=== PATIENT | male | born 1985 | race Caucasian/White ===

== ENCOUNTER → 2020-07-06 10:51 | Outpatient (BNVA) | payer MEDICARE, MEDICAID, SELFPAY | PROVIDERS: Referring Provider Dermatology; Visit Provider Dermatology | DX: L81.0 Postinflammatory hyperpigmentation (principal); L90.5 Scar conditions and fibrosis of skin; L85.3 Xerosis cutis | CPT/HCPCS: 99203 ==

== ENCOUNTER 2020-07-26 14:34 | Outpatient (CLI) | payer MEDICARE, MEDICAID, SELFPAY ==
--- NOTE | 2020-07-26 14:46 | MR_ITS ---
WS: [id number] MRI LUMBAR SPINE NONCONTRAST HISTORY: FAILED SURGICAL SYNDROME, several prior lumbar spine surgeries which were multiple years ago . COMPARISON: None available. TECHNIQUE: Sagittal and axial multisequence imaging is submitted. Lumbar alignment is normal. There is prior fusion hardware at the L4-S1 levels. Anterior and posterio r fusion hardware. Hardware is causing significant artifact through these levels. The L4-5 and L5-S1 disc spaces are poorly visualized but disc spaces do appear to be present. No marrow edema or fractur e identified. Significant narrowing of the thecal sac beginning at the mid L1 level through the superior endplate o f L3. There is tethering and thickening of the nerve roots. Conus terminates normally at L1-2 disc level. L1-L2: No significant stenosis. L2-L3: Moderate annular disc bulging. RIGHT paracentral and proximal foraminal disc protrusion. Mild facet and ligamentum flavum hypertrophy. There is at least moderate central stenosis with severe RIGH T and mild LEFT foraminal stenosis. Bilateral subarticular recess stenosis is at least moderate, grea ter on the RIGHT. L3-L4: Diffuse annular disc bulging with facet disease and ligamentum flavum hypertrophy. Near comple te effacement of ventral CSF. Moderate central and moderate to severe bilateral foraminal stenosis an d subarticular recess stenosis. L4-L5: Clumping of the nerve roots in the periphery of the thecal sac. Mild RIGHT foraminal stenosis. The disc space and foramen are poorly visualized. L5-S1: Mild annular disc bulging with a central shallow disc protrusion. No significant stenosis. Paravertebral soft tissues are negative. MR/MR lumbar spine wo con* [id number] IMPRESSION: 1. No prior studies for comparison. 2. There is extensive anterior and posterior fusion hardware from L4 to S1 caio aterally. Interbody spacers at L4-5 and L5-S1. 3. Moderate central with severe RIGHT foraminal stenosis at L2-3. Moderate sub articular recess stenosis at L2-3 also. 4. Moderate central with moderate to severe bilateral foraminal subarticular r ecess stenosis at L3-4. 5. Abnormal signal involving the nerve roots and conus extending over length o f 6.6 cm. 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
== END 2020-07-26 14:35 | disposition home or self-care (01) ==
LOC: RADWPI 14:40
PROVIDERS: PCP Family Medicine Adult Medicine; Visit Provider Family Medicine
DX: M96.1 Postlaminectomy syndrome, not elsewhere classified (principal); G89.29 Other chronic pain; M48.061 Spinal stenosis, lumbar region without neurogenic claudication; M43.27 Fusion of spine, lumbosacral region
CPT/HCPCS: 72148

== ENCOUNTER → 2020-07-27 10:45 | Outpatient (BNVA) | payer MEDICARE, MEDICAID, SELFPAY | PROVIDERS: PCP Family Medicine Adult Medicine; Visit Provider Dermatology | DX: R21 Rash and other nonspecific skin eruption (principal); F17.210 Nicotine dependence, cigarettes, uncomplicated; D48.9 Neoplasm of uncertain behavior, unspecified | CPT/HCPCS: 11104; 88304; 99212; 99213 ==

== ENCOUNTER → 2020-08-21 15:11 | Outpatient (BNVA) | payer MEDICARE, MEDICAID, SELFPAY | PROVIDERS: PCP Family Medicine Adult Medicine; Visit Provider Nurse Practitioner Family | DX: Z20.828 Contact with and (suspected) exposure to other viral communicable diseases (principal); J06.9 Acute upper respiratory infection, unspecified | CPT/HCPCS: 87635 ==

== ENCOUNTER 2020-11-08 08:34 | Outpatient (RCR) | payer MEDICARE, MEDICAID, SELFPAY | END 2020-12-03 23:59 | disposition home or self-care (01) | LOC: SPT 08:34 | PROVIDERS: PCP Family Medicine Adult Medicine; Referring Provider Family Medicine; Visit Provider Family Medicine | DX: R29.898 Other symptoms and signs involving the musculoskeletal system (principal); M25.511 Pain in right shoulder; M25.512 Pain in left shoulder | CPT/HCPCS: 97110; 97161; 97530 ==

== ENCOUNTER 2020-12-04 06:00 | Outpatient (RCR) | payer MEDICARE, MEDICAID, SELFPAY | END 2020-12-31 23:59 | disposition home or self-care (01) | LOC: SPT 06:00 | PROVIDERS: PCP Family Medicine Adult Medicine; Referring Provider Family Medicine; Visit Provider Family Medicine | DX: R29.898 Other symptoms and signs involving the musculoskeletal system (principal); M25.511 Pain in right shoulder; M25.512 Pain in left shoulder | CPT/HCPCS: 97110; 97164; 97530 ==

== ENCOUNTER 2021-01-01 06:00 | Outpatient (RCR) | payer MEDICARE, MEDICAID, SELFPAY | END 2021-01-31 23:59 | disposition home or self-care (01) | LOC: SPT 06:00 | PROVIDERS: PCP Family Medicine Adult Medicine; Referring Provider Family Medicine; Visit Provider Family Medicine | DX: R29.898 Other symptoms and signs involving the musculoskeletal system (principal); M25.511 Pain in right shoulder; M25.512 Pain in left shoulder | CPT/HCPCS: 97110 ==

== ENCOUNTER 2021-03-19 09:10 | Outpatient (CLI) | payer MEDICARE, MEDICAID, SELFPAY ==
[2021-03-19 10:01] LABS: Basophils % 0.3 %; Eosinophils # 0.2 10^3/uL (0.0-0.8); Eosinophils % 2.7 %; Hematocrit 47.5 % (42.0-52.0); Hemoglobin 16.4 g/dL (11.7-16.6); Lymphocytes # 2.3 10^3/uL (0.8-4.8); Lymphocytes % 36.6 %; Mean Corpuscular HGB Conc 34.5 g/dL (30.0-36.0); Mean Corpuscular Hemoglobin 30.4 pg (28.0-34.0); Mean Corpuscular Volume 88.1 fL (80-94); Mean Platelet Volume 10.7 fL (7.4-10.4); Monocytes # 0.5 10^3/uL (0.2-0.9); Monocytes % 7.3 %; Neutrophils # 3.39 10^3/uL (1.8-7.7); Neutrophils % 52.9 %; Nucleated Red Blood Cells % 0 %; Platelet Count 289 10^3/cmm (130-400); Red Blood Count 5.39 10^6/uL (4.1-5.3); Red Cell Distribution Width 12.1 % (12.1-15.1); White Blood Count 6.4 10^3/uL (4.0-10.0)
[2021-03-19 10:38] LABS: Estmated Average Glucose 103; Hemoglobin A1C 5.2 % (4.0-6.0)
[2021-03-19 10:56] LABS: Alanine Aminotransferase 31 U/L (0-41); Albumin Level 4.4 g/dL (3.5-5.2); Alkaline Phosphatase 63 IU/L (40-130); Anion Gap 14.3 (5-19); Aspartate Amino Transferase 38 U/L (0-40); Blood Urea Nitrogen 11 mg/dL (6-20); Calcium 9.3 mg/dL (8.5-10.5); Carbon Dioxide 25 mmol/L (22-29); Chloride 105 mmol/L (98-107); Chol HDL Ratio 6.86 mg/dL (1.0-5.00); Cholesterol 199 mg/dL (0-200); Globulin 3.5 g/dL (1.3-4.6); Glomerular Filtration Rate 108.8 mL/min (90-130); Glucose 91 mg/dL (65-115); HDL Cholesterol 29 mg/dL (60-100); Osmolality Calculated 289 mOsm/kg (285-295); Potassium 4.3 mmol/L (3.5-5.1); Sodium 140 mmol/L (136-145); Thyroid Stimulating Hormone 1.49 uIU/mL (0.27-4.20); Total Bilirubin 0.6 mg/dL (0.15-1.2); Total Protein 7.9 g/dL (6.6-8.7); Triglycerides 527 mg/dL (0-150)
[2021-03-19 11:27] LABS: LDL Cholesterol Direct 97 mg/dL (0-100); Testosterone Total 458.3 ng/dL (249-836)
== END 2021-03-19 09:11 | disposition home or self-care (01) ==
LOC: LAB 09:23
PROVIDERS: PCP Family Medicine Adult Medicine; Visit Provider Family Medicine Adult Medicine
DX: Z00.00 Encounter for general adult medical examination without abnormal findings (principal); L60.3 Nail dystrophy; F19.90 Other psychoactive substance use, unspecified, uncomplicated
CPT/HCPCS: 80053; 80061; 83036; 83721; 84403; 84443; 85025

== ENCOUNTER 2021-04-09 23:26 | Emergency (ER) | payer MEDICARE, MEDICAID, SELFPAY ==
[2021-04-09 23:32] VITALS: BP 140/99; PULSE 107; RESP 20; TEMP 37.3; O2SAT 95; BMI 36.3
--- NOTE | 2021-04-09 23:42 | ED_ITS ---
HPI - Extremity Problem General: Chief complaint: Extremity Problem,Nontraumatic Stated complaint: BEEN SICK 4 DAYS NOW HAS SWELLING IN LEFT ARM Time Seen by Provider: 04/09/21 23:42 History of Present Illness: HPI Narrative: 35-year-old male patient comes in w ith redness to the forearm on the left upper extremity for 3 days. Patient also has an enlarged lymph node to left axilla. Patient was seen at [facility] earlier today and was started on antibiotic but was unable to get it started this evening. Patient came in the emergency room to initiate treatment for his cellulitis. Patient also had some concerns relating a abscess to the groin. Patient has a history of heroin abuse with frequent staph infections. Patient even reports a history of staph to his spine. Patient at this time is afebrile. There is noticeable redness and swelling to the left forearm. MD Complaint: extremity swelling Review of Systems General: Reports: 10 or more systems reviewed and unremarkable except in HPI and below Skin/Breast: Reports: erythema (Left upper extremity.) and other (Abscess to the scrotum.) [facility] PFSH: Medical History Anxiety and depression Asteatosis cutis Chronic back pain Dyslipidemia (high LDL; low HDL) Encounter for smoking cessation counseling IV drug user Obesity (BMI 30-39.9) Sinusitis chronic, sphenoidal Sty, internal Surgical History H/O laminectomy Previous back surgery Family History Other Diabetes Social History Smoking and tobacco status: current every day smoker cigarettes Packs smoked per day: 0.5 [ Other cigarette details: 3 cigarettes, in rehab ] Alcohol intake: former Housing: Other Details: Rehab- [facility] [place] History of recent travel: No Physical Exam Const: COMMON NORMALS: no acute distress and patient oriented x3 GENERAL APPEARANCE: cooperative HENMT: COMMON NORMALS: normocephalic and Normal external nose present HEAD & SCALP: normal to inspection and normocephalic NOSE: Normal external nose present THROAT: posterior oropharynx normal Eye: GENERAL EYE: appearance normal, both eyes and all related structures Neck/C-Spine: COMMON NORMALS: full ROM Lymph: LYMPHATIC: lymphadenopathy (Left axilla) Chest: COMMONS NORMALS: normal inspection of the chest Resp: COMMON NORMALS: normal respiratory effort EFFORT & INSPECTION: Yes able to speak in complete sentences Cardio: COMMON NORMALS: regular rate and regular rhythm RATE: regular rate RHYTHM: regular rhythm GI: COMMON NORMALS: non-tender : COMMON NORMALS: Yes no CVA tenderness BLADDER/KIDNEY EXAM: Yes no CVA tenderness Back/Pelvis: COMMON NORMALS: no CVA tenderness and thoracic and lumbar spine normal to inspection Extremity: NARRATIVE EXTREMITY EXAM: Redness and swelling to the left forearm. Patient has extensive scarring to bilateral arms due to IV drug use history. Neuro: COMMON NORMALS: patient oriented x3 and moves all extremities Psych: COMMON NORMALS: mental status grossly normal and cooperative Skin: NARRATIVE SKIN EXAM: Draining abscess is noted to the left scrotal fold. Course Vital Signs: Vital signs: Vital Signs Temperature 99.1 F 04/09/21 23:32 Pulse Rate 107 H 04/09/21 23:32 Respiratory Rate 20 H 04/09/21 23:32 Blood Pressure 140/99 04/09/21 23:32 Pulse Oximetry 95 04/09/21 23:32 MDM - Extremity (Nontraumatic) MDM Narrative: Medical decision making narrative: Patient comes in today with complaints of redness and swelling to the left forearm. Patient also has an abscess to the scrotum that he was concerned may be a STD. On exam patient has the noticeable redness and warmth to the left forearm. Patient has a lot of scarring to bilateral forearms which he relates to his heroin addiction in the past. On exam the scrotal area we note a draining abscess. Patient also has some significant tinea cruris. Differential diagnosis includes DVT, cellulitis, abscess. Patient appears well at this time. Suspect patient probably has a cellulitis to the left forearm and a draining abscess to the scrotum. We will give patient 900 mg of clindamycin IV x1 and then start him on oral clindamycin 450 mg 3 times a day for the next 10 days. Patient was recommended to monitor site for worsening signs and symptoms such as increasing swelling pain and high fever. Patient should return to the ER for worsening symptoms. Patient reported understanding. Lab Data: Labs: Lab Results 04/10/21 Range/Units 00:17 WBC 11.5 H (4.0-10.0) 10^3/ uL RBC 5.21 (4.1-5.3) 10^6/u L Hgb 16.3 (11.7-16.6) g/dL Hct 45.4 (42.0-52.0) % MCV 87.1 (80-94) fL MCH 31.3 (28.0-34.0) pg MCHC 35.9 (30.0-36.0) g/dL RDW 12.4 (12.1-15.1) % Plt Count 184 (130-400) 10^3/c mm MPV 9.9 (7.4-10.4) fL Neut % (Auto) 78.4 % Lymph % (Auto) 12.1 % [place] % (Auto) 8.0 % Eos % (Auto) 0.9 % Baso % (Auto) 0.3 % Neut # (Auto) 9.05 H (1.8-7.7) 10^3/u L Lymph # (Auto) 1.4 (0.8-4.8) 10^3/u L [place] # (Auto) 0.9 (0.2-0.9) 10^3/u L Eos # (Auto) 0.1 (0.0-0.8) 10^3/u L Baso # (Auto) 0.0 (0.0-0.1) 10^3/u L Nucleated RBC % (a uto) 0 % Nucleated RBCs # 0.0 /100WBC Discharge Plan Discharge Patient Disposition: Home Clinical Impression: Cellulitis of arm, left, Abscess of scrotum Condition: Stable Prescriptions: New clindamycin HCl 150 mg capsule 450 mg PO Q8H 10 Days Qty: 90 RF: 0 No Action gemfibrozil 600 mg tablet 600 mg PO BID Qty: 60 RF: 5 melatonin PO PRNRF: 0 albuterol sulfate [Ventolin HFA] 90 mcg/actuation HFA aerosol inhaler 2 puff inhalation Q6H PRN (Reason: shortness of breath or wheezing) Qty: 8.5 RF: 3 baclofen 10 mg tablet 10 mg PO BID 30 Days Qty: 60 RF: 2 buspirone 5 mg tablet 5 mg PO BID Qty: 60 RF: 5 cetirizine [Zyrtec] 10 mg tablet 10 mg PO DAILY Qty: 30 RF: 2 fluticasone propionate [Flonase Allergy Relief] 50 mcg/actuation spray,suspension 2 spray intranasal DAILY Qty: 15.8 RF: 5 naproxen 250 mg tablet 250 mg PO BID PRN (Reason: pain) 30 Days Qty: 60 RF: 1 Discharge Orders: Discharge ED (Routine); Ordered 04/10/21 Ordered By: Rick Toney Referrals: Phil Salazar MD [Primary Care Provider] - Discharge Diet: Usual diet Discharge Activity: Increase activity as tolerated Patient Instructions: Cellulitis (ED), Opioid Safety Activity Restrictions/Additional Instructions: Home and rest. Keep arm elevated. Take antibiotics as directed. Follow-up [facility] primary care as needed. Return to the ER for worsening symptoms or new concerns. Coding Level of Care Code ED Door To Door Sales Representative for [place] Fwd Exam Comprehensive
[2021-04-10 00:24] LABS: Basophils % 0.3 %; Eosinophils # 0.1 10^3/uL (0.0-0.8); Eosinophils % 0.9 %; Hematocrit 45.4 % (42.0-52.0); Hemoglobin 16.3 g/dL (11.7-16.6); Lymphocytes # 1.4 10^3/uL (0.8-4.8); Lymphocytes % 12.1 %; Mean Corpuscular HGB Conc 35.9 g/dL (30.0-36.0); Mean Corpuscular Hemoglobin 31.3 pg (28.0-34.0); Mean Corpuscular Volume 87.1 fL (80-94); Mean Platelet Volume 9.9 fL (7.4-10.4); Monocytes # 0.9 10^3/uL (0.2-0.9); Neutrophils # 9.05 10^3/uL (1.8-7.7); Neutrophils % 78.4 %; Nucleated Red Blood Cells % 0 %; Platelet Count 184 10^3/cmm (130-400); Red Blood Count 5.21 10^6/uL (4.1-5.3); Red Cell Distribution Width 12.4 % (12.1-15.1); White Blood Count 11.5 10^3/uL (4.0-10.0)
[2021-04-10] MEDS: clindamycin 900 MG/50 ML PREMIX 100 MG IV (00:29)
[2021-04-10 00:57] VITALS: BP 119/80; PULSE 100; RESP 18; O2SAT 96
== END 2021-04-10 01:01 | disposition home or self-care (01) ==
PROVIDERS: Emergency Provider Nurse Practitioner Family; PCP Family Medicine Adult Medicine
DX: L03.114 Cellulitis of left upper limb (principal); N49.2 Inflammatory disorders of scrotum; E78.5 Hyperlipidemia, unspecified; F17.210 Nicotine dependence, cigarettes, uncomplicated
CPT/HCPCS: 85025; 87040; 96365; 99283; J3490

== ENCOUNTER → 2021-04-12 09:50 | Outpatient (BNVA) | payer MEDICARE, MEDICAID, SELFPAY | PROVIDERS: PCP Family Medicine Adult Medicine; Referring Provider Family Medicine Adult Medicine; Visit Provider Anesthesiology Pain Medicine | DX: G89.29 Other chronic pain (principal); M54.9 Dorsalgia, unspecified; M51.16 Intervertebral disc disorders with radiculopathy, lumbar region; M43.26 Fusion of spine, lumbar region; M47.816 Spondylosis without myelopathy or radiculopathy, lumbar region; F17.210 Nicotine dependence, cigarettes, uncomplicated; Z79.899 Other long term (current) drug therapy | CPT/HCPCS: 99205 ==

== ENCOUNTER → 2021-04-23 14:18 | Outpatient (BNVA) | payer MEDICARE, MEDICAID, SELFPAY | PROVIDERS: PCP Family Medicine Adult Medicine; Visit Provider Anesthesiology Pain Medicine | DX: G89.29 Other chronic pain (principal); M47.816 Spondylosis without myelopathy or radiculopathy, lumbar region; M54.9 Dorsalgia, unspecified; F17.210 Nicotine dependence, cigarettes, uncomplicated | CPT/HCPCS: 64493; 64494; 64495; J1040; J3490 ==

== ENCOUNTER → 2021-05-09 11:13 | Outpatient (BNVA) | payer MEDICARE, MEDICAID, SELFPAY | PROVIDERS: PCP Family Medicine Adult Medicine; Visit Provider Anesthesiology Pain Medicine | DX: G89.29 Other chronic pain (principal); M51.16 Intervertebral disc disorders with radiculopathy, lumbar region; M43.26 Fusion of spine, lumbar region; M47.816 Spondylosis without myelopathy or radiculopathy, lumbar region; M54.9 Dorsalgia, unspecified; F17.210 Nicotine dependence, cigarettes, uncomplicated | CPT/HCPCS: 99215 ==

== ENCOUNTER 2021-05-28 06:00 | Outpatient (RCR) | payer MEDICARE, MEDICAID, SELFPAY | END 2021-06-02 23:59 | disposition home or self-care (01) | LOC: SPT 06:00 | PROVIDERS: PCP Family Medicine Adult Medicine; Referring Provider Family Medicine Adult Medicine; Visit Provider Family Medicine Adult Medicine | DX: R29.898 Other symptoms and signs involving the musculoskeletal system (principal); M25.511 Pain in right shoulder; M25.512 Pain in left shoulder; M21.372 Foot drop, left foot | CPT/HCPCS: 97110; 97112; 97161 ==

== ENCOUNTER 2021-06-03 06:00 | Outpatient (RCR) | payer MEDICARE, MEDICAID, SELFPAY | END 2021-07-03 23:59 | disposition home or self-care (01) | LOC: SPT 06:00 | PROVIDERS: PCP Family Medicine Adult Medicine; Referring Provider Family Medicine Adult Medicine; Visit Provider Family Medicine Adult Medicine | DX: R29.898 Other symptoms and signs involving the musculoskeletal system (principal); M25.511 Pain in right shoulder; M25.512 Pain in left shoulder; M21.372 Foot drop, left foot | CPT/HCPCS: 97110; 97112; 97530 ==

== ENCOUNTER 2021-06-12 07:45 | Outpatient (CLI) | payer MEDICARE, MEDICAID, SELFPAY ==
--- NOTE | 2021-06-12 08:01 | MR_ITS ---
WS: [id number] MRI LUMBAR SPINE NONCONTRAST HISTORY: LUMBAR STENOSIS WITHOUT NEUROGENIC CLAUDICATION COMPARISON: 07/26/2020 TECHNIQUE: Sagittal and axial multisequence imaging is submitted. Small central disc protrusion at T10-11 contacting the ventral thoracic cord. There are smaller addit ional protrusions throughout the thoracic spine. Straightening of the normal lumbar lordosis. Prior lumbar fusion from L4 to S1. Interbody spacers at L4-5 and L5-S1 with fusion. No marrow edema or acute fracture. Conus terminates normally at L1-2 disc level. L1-L2: Mild disc bulging slightly asymmetric to the LEFT foramen. No stenosis. L2-L3: Diffuse moderate annular disc bulging with moderate facet and ligamentum flavum hypertrophy. D isc and osteophyte complex extends into the RIGHT subarticular recess and foramen with contact on the L2 and L3 nerve roots. There is at least moderate central and bilateral subarticular and RIGHT madeleine inal stenosis. Mild LEFT foraminal stenosis. Not significantly changed. L3-L4: Diffuse annular disc bulging with ligamentum flavum hypertrophy and mild facet joint arthritis . LEFT subarticular disc protrusion is again noted. Mild central stenosis with moderate bilateral sub articular recess and LEFT foraminal stenosis. Mild stenosis RIGHT foramen. L4-L5: Artifact from patient's hardware. Mild to moderate RIGHT foraminal stenosis. Mild stenosis on the LEFT. L5-S1: Central disc protrusion is similar to the prior study. Mild contact on the S1 nerve roots but no displacement. There is mild bilateral facet joint arthritis. Paravertebral soft tissues are negative. MR/MR lumbar spine wo con* [id number] IMPRESSION: 1. Quality is limited by motion artifact. 2. Probably no significant change since the prior examination. 3. Prior posterior lumbar fusion from L4 to S1. 4. Moderate central and bilateral subarticular recess and RIGHT foraminal sten osis at L2-3 due to disc osteophyte and facet arthritis. 5. Moderate bilateral subarticular recess and LEFT foraminal stenosis at L3-4. Associated LEFT subarticular disc protrusion is again noted. 6. Mild to moderate RIGHT foraminal stenosis at L4-5. 7. Central disc protrusion L5-S1 with mild contact on the S1 nerve roots.
== END 2021-06-12 07:46 | disposition home or self-care (01) ==
LOC: RADWPI 07:48
PROVIDERS: PCP Family Medicine Adult Medicine; Visit Provider Nurse Practitioner Acute Care
DX: M48.061 Spinal stenosis, lumbar region without neurogenic claudication (principal); M51.27 Other intervertebral disc displacement, lumbosacral region; M43.27 Fusion of spine, lumbosacral region
CPT/HCPCS: 72148

== ENCOUNTER 2021-07-04 06:00 | Outpatient (RCR) | payer MEDICARE, MEDICAID, SELFPAY | END 2021-08-02 23:59 | disposition home or self-care (01) | LOC: SPT 06:00 | PROVIDERS: PCP Family Medicine Adult Medicine; Referring Provider Family Medicine Adult Medicine; Visit Provider Family Medicine Adult Medicine | DX: R29.898 Other symptoms and signs involving the musculoskeletal system (principal); M25.511 Pain in right shoulder; M25.512 Pain in left shoulder; M21.372 Foot drop, left foot | CPT/HCPCS: 97110; 97112 ==

== ENCOUNTER 2021-07-20 14:01 | Outpatient (CLI) | payer MEDICARE, MEDICAID, SELFPAY ==
--- NOTE | 2021-07-20 14:15 | US_ITS ---
WS: [id number] TESTICULAR ULTRASOUND HISTORY: knot in scrotum COMPARISON: None available. TECHNIQUE: Real-time and color Doppler imaging or utilized to perform a testicular ultrasound. Right testicle: 5.6 cm x 3.5 cm x 2.6 cm. Normal size and echogenicity. No mass or torsion. Normal color Doppler is present throughout. Systolic and diastolic velocities are both present. Small hydrocele. Right epididymis: Spermatoceles. No increased vascularity. Left testicle: 5.5 cm x 4.1 cm x 2.7 cm. Normal size and echogenicity. No mass or torsion. Normal color Doppler is present throughout. Systolic and diastolic velocities are both present. No significant hydrocele. Left epididymis: Normal epididymis with no increased vascularity. There is a very vague hypoechoic area along the RIGHT lateral scrotum measuring 1.4 x 1.1 x 0.3 cm wi th mild peripheral increased vascularity. There is an additional hypoechoic area very superficial in the LEFT scrotum measuring 0.8 x 0.8 x 0.5 cm. Scrotal wall nodules are present. US/US scrotum [id number] IMPRESSION: 1. No testicular mass or torsion. 2. Bilateral scrotal wall nodules. These are probably small epidermoid or seba ceous cysts. Early phlegmonous collection is not excluded but thought less like ly as these have been present for a well.
== END 2021-07-20 14:02 | disposition home or self-care (01) ==
LOC: RAD 14:04
PROVIDERS: PCP Family Medicine Adult Medicine; Visit Provider Family Medicine Adult Medicine
DX: N50.89 Other specified disorders of the male genital organs (principal)
CPT/HCPCS: 76870

== ENCOUNTER → 2021-07-24 12:50 | Outpatient (BNVA) | payer MEDICARE, MEDICAID, SELFPAY | PROVIDERS: PCP Family Medicine Adult Medicine; Visit Provider Specialist | DX: M51.16 Intervertebral disc disorders with radiculopathy, lumbar region (principal); G62.89 Other specified polyneuropathies | CPT/HCPCS: 95909 ==

== ENCOUNTER 2021-08-03 06:00 | Outpatient (RCR) | payer MEDICARE, MEDICAID, SELFPAY | END 2021-09-02 23:59 | disposition home or self-care (01) | LOC: SPT 06:00 | PROVIDERS: PCP Family Medicine Adult Medicine; Referring Provider Family Medicine Adult Medicine; Visit Provider Family Medicine Adult Medicine | DX: M25.512 Pain in left shoulder (principal); M25.511 Pain in right shoulder | CPT/HCPCS: 97110; 97112; 97530 ==

== ENCOUNTER → 2021-08-10 09:48 | Outpatient (BNVA) | payer MEDICARE, MEDICAID, SELFPAY | PROVIDERS: PCP Family Medicine Adult Medicine; Visit Provider Urology | DX: N49.2 Inflammatory disorders of scrotum (principal); L72.0 Epidermal cyst | CPT/HCPCS: 81003 ==

== ENCOUNTER → 2021-08-22 10:59 | Outpatient (BNVA) | payer MEDICARE, MEDICAID, SELFPAY | PROVIDERS: PCP Family Medicine Adult Medicine; Visit Provider Anesthesiology Pain Medicine | DX: G89.29 Other chronic pain (principal); M51.16 Intervertebral disc disorders with radiculopathy, lumbar region; M43.26 Fusion of spine, lumbar region; M47.816 Spondylosis without myelopathy or radiculopathy, lumbar region; M79.604 Pain in right leg; M79.605 Pain in left leg; F17.210 Nicotine dependence, cigarettes, uncomplicated | CPT/HCPCS: 99214 ==

== ENCOUNTER 2021-09-03 06:00 | Outpatient (RCR) | payer MEDICARE, MEDICAID, SELFPAY | END 2021-10-02 23:59 | disposition home or self-care (01) | LOC: SPT 06:00 | PROVIDERS: PCP Family Medicine Adult Medicine; Referring Provider Family Medicine Adult Medicine; Visit Provider Family Medicine Adult Medicine | DX: M25.511 Pain in right shoulder (principal); M25.512 Pain in left shoulder; M21.372 Foot drop, left foot; R29.898 Other symptoms and signs involving the musculoskeletal system | CPT/HCPCS: 97110; 97530 ==

== ENCOUNTER → 2021-09-06 13:59 | Outpatient (BNVA) | payer MEDICARE, MEDICAID, SELFPAY | PROVIDERS: PCP Family Medicine Adult Medicine; Visit Provider Anesthesiology Pain Medicine | DX: G89.29 Other chronic pain (principal); M53.3 Sacrococcygeal disorders, not elsewhere classified; Z91.041 Radiographic dye allergy status; M54.50 Low back pain, unspecified | CPT/HCPCS: G0260; J1040; J1100; J1200; J3490 ==

== ENCOUNTER 2021-10-03 06:00 | Outpatient (RCR) | payer MEDICARE, MEDICAID, SELFPAY | END 2021-11-02 23:59 | disposition home or self-care (01) | LOC: SPT 06:00 | PROVIDERS: PCP Family Medicine Adult Medicine; Visit Provider Family Medicine Adult Medicine | DX: R29.898 Other symptoms and signs involving the musculoskeletal system (principal); M25.511 Pain in right shoulder; M25.512 Pain in left shoulder; M21.372 Foot drop, left foot | CPT/HCPCS: 97110; 97530 ==

== ENCOUNTER → 2021-10-10 09:41 | Outpatient (BNVA) | payer MEDICARE, MEDICAID, SELFPAY | PROVIDERS: PCP Family Medicine Adult Medicine; Visit Provider Specialist | DX: M47.816 Spondylosis without myelopathy or radiculopathy, lumbar region (principal); M43.26 Fusion of spine, lumbar region; G57.30 Lesion of lateral popliteal nerve, unspecified lower limb; M21.371 Foot drop, right foot; M21.372 Foot drop, left foot | CPT/HCPCS: 99214 ==

== ENCOUNTER 2021-11-03 06:00 | Outpatient (RCR) | payer MEDICARE, MEDICAID, SELFPAY | END 2021-12-03 23:59 | disposition home or self-care (01) | LOC: SPT 06:00 | PROVIDERS: PCP Family Medicine Adult Medicine; Visit Provider Family Medicine Adult Medicine | DX: R29.898 Other symptoms and signs involving the musculoskeletal system (principal); M25.511 Pain in right shoulder; M25.512 Pain in left shoulder; M21.372 Foot drop, left foot | CPT/HCPCS: 97110; 97530 ==

== ENCOUNTER 2021-12-04 06:00 | Outpatient (RCR) | payer MEDICARE, MEDICAID, SELFPAY | END 2021-12-31 23:59 | disposition home or self-care (01) | LOC: SPT 06:00 | PROVIDERS: PCP Family Medicine Adult Medicine; Visit Provider Family Medicine Adult Medicine | DX: R29.898 Other symptoms and signs involving the musculoskeletal system (principal); M25.511 Pain in right shoulder; M25.512 Pain in left shoulder; M21.372 Foot drop, left foot | CPT/HCPCS: 97110; 97530 ==

== ENCOUNTER 2022-01-01 06:00 | Outpatient (RCR) | payer MEDICARE, MEDICAID, SELFPAY | END 2022-01-31 23:59 | disposition home or self-care (01) | LOC: SPT 06:00 | PROVIDERS: PCP Family Medicine Adult Medicine; Visit Provider Family Medicine Adult Medicine | DX: R29.898 Other symptoms and signs involving the musculoskeletal system (principal); M25.511 Pain in right shoulder; M25.512 Pain in left shoulder; M21.372 Foot drop, left foot | CPT/HCPCS: 97110 ==

== ENCOUNTER 2022-01-24 15:33 | Outpatient (CLI) | payer MEDICARE, MEDICAID, SELFPAY ==
--- NOTE | 2022-01-24 16:22 | XR_ITS ---
WS: [id number] PA and lateral chest, 01/24/2022 Clinical Data: Positive TB skin test,MOB Comparison: None. Findings: No nodules, masses or effusions are seen. There is a soft tissue density measuring 4.9 cm o verlying the right lower lobe which may be on the patient's skin surface. The lateral film does not s how any evidence of a pulmonary mass. The heart is normal. No pneumonia or pneumothorax is seen. Ther e is no evidence of tuberculosis. XR/XR chest 2V* [id number] Impression: 1. No evidence of tuberculosis. 2. Soft tissue density overlying right lower lobe which may represent a skin fo ld and recommend examination of the patient's chest and repeat PA and lateral c hest with a marker on any skin prominence on the front or back of the patient's right chest.
== END 2022-01-24 15:34 | disposition home or self-care (01) ==
PROVIDERS: PCP Family Medicine Adult Medicine; Visit Provider Family Medicine Adult Medicine
DX: R76.11 Nonspecific reaction to tuberculin skin test without active tuberculosis (principal)
CPT/HCPCS: 71046

== ENCOUNTER 2022-02-01 06:00 | Outpatient (RCR) | payer MEDICARE, MEDICAID, SELFPAY | END 2022-03-02 23:59 | disposition home or self-care (01) | LOC: SPT 06:00 | PROVIDERS: PCP Family Medicine Adult Medicine; Visit Provider Family Medicine Adult Medicine | DX: R29.898 Other symptoms and signs involving the musculoskeletal system (principal); M25.511 Pain in right shoulder; M25.512 Pain in left shoulder; M21.372 Foot drop, left foot | CPT/HCPCS: 97110 ==

== ENCOUNTER 2022-03-21 | Outpatient (RCR) | payer MEDICARE, MEDICAID, SELFPAY | END 2022-04-02 23:59 | disposition home or self-care (01) | LOC: SPT | PROVIDERS: PCP Family Medicine Adult Medicine; Visit Provider Family Medicine Adult Medicine | DX: M25.511 Pain in right shoulder (principal); M25.512 Pain in left shoulder; M21.372 Foot drop, left foot; R29.898 Other symptoms and signs involving the musculoskeletal system | CPT/HCPCS: 97110 ==

== ENCOUNTER 2022-04-03 06:00 | Outpatient (RCR) | payer MEDICARE, MEDICAID, SELFPAY | END 2022-05-02 23:59 | disposition home or self-care (01) | LOC: SPT 06:00 | PROVIDERS: PCP Family Medicine Adult Medicine; Visit Provider Family Medicine Adult Medicine | DX: R29.898 Other symptoms and signs involving the musculoskeletal system (principal); M25.511 Pain in right shoulder; M25.512 Pain in left shoulder; M21.372 Foot drop, left foot | CPT/HCPCS: 97110 ==

== ENCOUNTER 2022-05-03 06:00 | Outpatient (RCR) | payer MEDICARE, MEDICAID, SELFPAY | END 2022-06-02 23:59 | disposition home or self-care (01) | LOC: SPT 06:00 | PROVIDERS: PCP Family Medicine Adult Medicine; Visit Provider Family Medicine Adult Medicine | DX: R29.898 Other symptoms and signs involving the musculoskeletal system (principal); M25.511 Pain in right shoulder; M25.512 Pain in left shoulder; M21.372 Foot drop, left foot | CPT/HCPCS: 97110 ==

== ENCOUNTER → 2022-05-09 16:02 | Outpatient (BNVA) | payer MEDICARE, MEDICAID, SELFPAY | PROVIDERS: PCP Family Medicine Adult Medicine; Visit Provider Urology | DX: N49.2 Inflammatory disorders of scrotum (principal); I80.9 Phlebitis and thrombophlebitis of unspecified site | CPT/HCPCS: 81003; 99213 ==

== ENCOUNTER → 2022-07-16 14:37 | Outpatient (BNVA) | payer MEDICARE, MEDICAID, SELFPAY | PROVIDERS: PCP Family Medicine Adult Medicine; Visit Provider Physician Assistant | DX: M51.16 Intervertebral disc disorders with radiculopathy, lumbar region (principal); M21.372 Foot drop, left foot; Z98.1 Arthrodesis status | CPT/HCPCS: 72110; 99203 ==

== ENCOUNTER 2022-08-13 08:01 | Outpatient (CLI) | payer MEDICARE, MEDICAID, SELFPAY ==
--- NOTE | 2022-08-13 08:00 | IR_ITS ---
WS: [id number] MYELOGRAM LUMBAR SPINE Fluoroscopic guided lumbar myelogram CLINICAL INFORMATION: pain COMPARISON: MRI June 12, 2021 TECHNIQUE: The procedure, including risks, benefits, and complications, were discussed with the patie nt who agreed to proceed. A timeout was performed to confirm correct patient, procedure, and site. Using sterile technique, the patient was prepped and draped in the usual sterile fashion. After admin istration of local anesthesia using 1% preservative-free lidocaine and using fluoroscopic guidance, a 22-gauge spinal needle was advanced into the subarachnoid space at the L3-L4 level. Subsequently 13 cc of Omnipaque 240 was administered into the thecal sac. The needle was removed and hemostasis was a chieved. Spot fluoroscopic images were obtained. FLUOROSCOPIC TIME: 2min [id number] # of spot films: 6 Spot fluoroscopic images demonstrates good opacification of the thecal sac. Prior postoperative briones es pedicle screw fixation L3-L5 with interconnecting rods. Anterior screw fixation L5-S1. Single ante rior fixation screw L3. Interbody bony fusion L4-L5 and L5-S1. IR/IR myelogram sp lumbar [id number] IMPRESSION: 1. Uncomplicated lumbar myelogram. 2. Please see CT myelogram report for anatomic detail.
--- NOTE | 2022-08-13 09:22 | CT_ITS ---
WS: [id number] CT LUMBAR SPINE TECHNIQUE: Contrast-enhanced CT of the lumbar spine with coronal and sagittal reformatted images. CLINICAL INFORMATION: pain COMPARISON: MRI June 12, 2021 DLP: 1911.[address] scans at [facility] use at least one of these dose optimization techniques: automated e xposure control; mA and/or kV adjustment per patient size (includes targeted exams where dose is matc hed to clinical indication); or iterative reconstruction. FINDINGS: Mild lumbar curve. No acute compression. Pedicle screw fixation L3-L5 with interconnecting rods. Ante rior fixation screws L4. Anterior screw fixation L5 and S1. Fracture of the S1 anterior fixation scr ews with slight step-off best seen on the sagittal imaging and axial imaging Interbody fusion grafts L4-L5 and L5-S1 with evidence of bony bridging beyond the confines of the gra fts . L1-L2: Mild annular bulging with slight effacement of ventral thecal sac. Narrowing of the RIGHT grea ter than LEFT subarticular recess. Mild RIGHT foraminal narrowing. L2-L3: Mild annular bulging with moderate to severe central canal stenosis. Upstream redundancy of th e cauda equina nerve rootlets. Significant effacement of the ventral thecal sac. Moderate facet arthr opathy ligamentum flavum hypertrophy. Impingement subarticular recess bilaterally. Moderate bilateral foraminal narrowing. L3-L4: Mild disc bulging and moderate central canal stenosis. Moderate facet arthropathy ligamentum f lavum hypertrophy. Narrowing of the subarticular recess bilaterally. Slight retrolisthesis. Moderate bilateral foraminal narrowing. L4-L5: Prior postoperative changes. Spinal canal is patent. Slight narrowing of the RIGHT subarticula r recess. Mild RIGHT and no significant LEFT foraminal narrowing. Moderate facet arthropathy. L5-S1: Prior postoperative changes. Bony ridging with slight narrowing of the LEFT subarticular reces s. Foramen are patent. Visualized pelvic bony structures: Normal. Paravertebral soft tissues: Normal. CT/CT lumbar spine w con [id number] IMPRESSION: 1. Fracture of the S1 anterior Fixation screws with slight step-off best seen on the sagittal imaging and axial imaging 2. Interbody fusion grafts L4-L5 and L5-S1 with evidence of bony bridging beyo nd the confines of the grafts. 3. Moderate to severe central canal stenosis L2-L3 due to disc bulging with fa cet arthropathy ligamentum flavum hypertrophy. This is similar in appearance to June 12, 2021 and may be slightly progressed. Associated redundancy of the c auda equina nerve rootlets. 4. Moderate central canal stenosis L3-L4 with moderate facet arthropathy and l igamentum flavum hypertrophy. 5. Slight narrowing of the RIGHT subarticular recess L1-L2 with mild RIGHT L1- L2 foraminal narrowing. 6. Moderate bilateral L2-L3 and L3-L4 foraminal narrowing. Mild RIGHT L4-L5 juli ny foraminal narrowing.
[2022-08-13] MEDS: iohexol 240 mg/mL 50 mL Btl INTRATHECA (09:40)
== END 2022-08-13 08:02 | disposition home or self-care (01) ==
LOC: RAD 08:02
PROVIDERS: PCP Family Medicine Adult Medicine; Visit Provider Physician Assistant
DX: M51.16 Intervertebral disc disorders with radiculopathy, lumbar region (principal); M48.061 Spinal stenosis, lumbar region without neurogenic claudication; M51.36 Other intervertebral disc degeneration, lumbar region; M47.816 Spondylosis without myelopathy or radiculopathy, lumbar region
CPT/HCPCS: 62304; 72132

== ENCOUNTER → 2022-08-22 07:55 | Outpatient (BNVA) | payer MEDICARE, MEDICAID, SELFPAY | PROVIDERS: PCP Family Medicine Adult Medicine; Visit Provider Orthopaedic Surgery | DX: M48.062 Spinal stenosis, lumbar region with neurogenic claudication; Z98.890 Other specified postprocedural states; Z98.1 Arthrodesis status | CPT/HCPCS: 95909; 95911; 99213; 99214 ==

== ENCOUNTER → 2022-08-28 08:51 | Outpatient (BNVA) | payer MEDICARE, MEDICAID, SELFPAY | PROVIDERS: PCP Family Medicine Adult Medicine; Visit Provider Family Medicine Adult Medicine | DX: M54.9 Dorsalgia, unspecified (principal); G89.29 Other chronic pain; F41.9 Anxiety disorder, unspecified; M51.16 Intervertebral disc disorders with radiculopathy, lumbar region; F32.9 Major depressive disorder, single episode, unspecified | CPT/HCPCS: 80053; 85025 ==

== ENCOUNTER → 2022-09-02 08:54 | Outpatient (BNVA) | payer MEDICARE, MEDICAID, SELFPAY | PROVIDERS: PCP Family Medicine Adult Medicine; Visit Provider Anesthesiology Pain Medicine | DX: G89.29 Other chronic pain (principal); M48.062 Spinal stenosis, lumbar region with neurogenic claudication; M51.16 Intervertebral disc disorders with radiculopathy, lumbar region; M43.26 Fusion of spine, lumbar region; M47.816 Spondylosis without myelopathy or radiculopathy, lumbar region; M79.604 Pain in right leg; M79.605 Pain in left leg; F17.290 Nicotine dependence, other tobacco product, uncomplicated | CPT/HCPCS: 99214 ==

== ENCOUNTER 2022-09-19 06:00 | Outpatient (RCR) | payer MEDICARE, MEDICAID, SELFPAY | END 2022-09-20 13:41 | disposition home or self-care (01) | LOC: SPT 06:00 | PROVIDERS: PCP Family Medicine Adult Medicine; Visit Provider Family Medicine Adult Medicine | DX: M48.062 Spinal stenosis, lumbar region with neurogenic claudication (principal); M43.26 Fusion of spine, lumbar region; M21.372 Foot drop, left foot; T84.216A Breakdown (mechanical) of internal fixation device of vertebrae, initial encounter; Y83.8 Other surgical procedures as the cause of abnormal reaction of the patient, or of later complication, without mention of misadventure at the time of the procedure | CPT/HCPCS: 62323 ==

== ENCOUNTER 2022-10-15 06:00 | Outpatient (RCR) | payer MEDICARE, MEDICAID, SELFPAY | END 2022-11-02 23:59 | disposition home or self-care (01) | LOC: SPT 06:00 | PROVIDERS: PCP Family Medicine Adult Medicine; Visit Provider Family Medicine Adult Medicine | DX: M48.062 Spinal stenosis, lumbar region with neurogenic claudication (principal); T84.216A Breakdown (mechanical) of internal fixation device of vertebrae, initial encounter; Y83.8 Other surgical procedures as the cause of abnormal reaction of the patient, or of later complication, without mention of misadventure at the time of the procedure; M43.26 Fusion of spine, lumbar region | CPT/HCPCS: 97110; 97161 ==

== ENCOUNTER 2022-11-03 06:00 | Outpatient (RCR) | payer MEDICARE, MEDICAID, SELFPAY | END 2022-11-07 23:59 | disposition home or self-care (01) | LOC: SPT 06:00 | PROVIDERS: PCP Family Medicine Adult Medicine; Visit Provider Family Medicine Adult Medicine | DX: M48.062 Spinal stenosis, lumbar region with neurogenic claudication (principal); T84.216D Breakdown (mechanical) of internal fixation device of vertebrae, subsequent encounter; M43.26 Fusion of spine, lumbar region; Y82.8 Other medical devices associated with adverse incidents | CPT/HCPCS: 97110 ==

== ENCOUNTER 2023-01-22 06:00 | Outpatient (RCR) | payer MEDICARE, MEDICAID, SELFPAY | END 2023-01-31 23:59 | disposition home or self-care (01) | LOC: SPT 06:00 | PROVIDERS: PCP Family Medicine Adult Medicine; Visit Provider Neurological Surgery | DX: Z98.1 Arthrodesis status (principal) | CPT/HCPCS: 97161 ==

== ENCOUNTER 2023-02-01 06:00 | Outpatient (RCR) | payer MEDICARE, MEDICAID, SELFPAY | END 2023-03-02 23:59 | disposition home or self-care (01) | LOC: SPT 06:00 | PROVIDERS: PCP Family Medicine Adult Medicine; Visit Provider Neurological Surgery | DX: Z47.89 Encounter for other orthopedic aftercare (principal); Z98.1 Arthrodesis status | CPT/HCPCS: 97110 ==

== ENCOUNTER 2023-03-03 06:00 | Outpatient (RCR) | payer MEDICARE, MEDICAID, SELFPAY | END 2023-04-02 23:59 | disposition home or self-care (01) | LOC: SPT 06:00 | PROVIDERS: PCP Family Medicine Adult Medicine; Visit Provider Neurological Surgery | DX: Z98.1 Arthrodesis status (principal) | CPT/HCPCS: 97110 ==

== ENCOUNTER 2023-04-03 06:00 | Outpatient (RCR) | payer MEDICARE, MEDICAID, SELFPAY | END 2023-05-02 23:59 | disposition home or self-care (01) | LOC: SPT 06:00 | PROVIDERS: PCP Family Medicine Adult Medicine; Visit Provider Neurological Surgery | DX: Z98.1 Arthrodesis status (principal) | CPT/HCPCS: 97110 ==

== ENCOUNTER 2023-05-03 06:00 | Outpatient (RCR) | payer MEDICARE, MEDICAID, SELFPAY | END 2023-06-02 23:59 | disposition home or self-care (01) | LOC: SPT 06:00 | PROVIDERS: PCP Family Medicine Adult Medicine; Visit Provider Neurological Surgery | DX: Z98.1 Arthrodesis status (principal) | CPT/HCPCS: 97110 ==

== ENCOUNTER 2023-05-12 20:00 | Outpatient (CLI) | payer MEDICARE, MEDICAID, SELFPAY | END 2023-05-12 20:01 | disposition home or self-care (01) | LOC: SLEEP 05-13 04:40 | PROVIDERS: PCP Family Medicine Adult Medicine; Visit Provider Family Medicine Adult Medicine | DX: G47.30 Sleep apnea, unspecified (principal) | CPT/HCPCS: 95810 ==

== ENCOUNTER 2023-06-03 06:00 | Outpatient (RCR) | payer MEDICARE, MEDICAID, SELFPAY | END 2023-07-03 23:59 | disposition home or self-care (01) | LOC: SPT 06:00 | PROVIDERS: PCP Family Medicine Adult Medicine; Visit Provider Neurological Surgery | DX: Z98.1 Arthrodesis status (principal) | CPT/HCPCS: 97110 ==

== ENCOUNTER → 2023-06-24 08:50 | Outpatient (BNVA) | payer MEDICARE, MEDICAID, SELFPAY | PROVIDERS: PCP Family Medicine Adult Medicine; Visit Provider Anesthesiology Pain Medicine | DX: M48.062 Spinal stenosis, lumbar region with neurogenic claudication (principal); G89.29 Other chronic pain; M51.16 Intervertebral disc disorders with radiculopathy, lumbar region; M43.26 Fusion of spine, lumbar region; M47.816 Spondylosis without myelopathy or radiculopathy, lumbar region | CPT/HCPCS: 99214 ==

== ENCOUNTER → 2023-07-10 09:28 | Outpatient (BNVA) | payer MEDICARE, MEDICAID, SELFPAY | PROVIDERS: PCP Family Medicine Adult Medicine; Visit Provider Anesthesiology Pain Medicine | DX: M79.18 Myalgia, other site (principal); G89.29 Other chronic pain; M48.062 Spinal stenosis, lumbar region with neurogenic claudication; M51.16 Intervertebral disc disorders with radiculopathy, lumbar region; M43.26 Fusion of spine, lumbar region; M47.816 Spondylosis without myelopathy or radiculopathy, lumbar region | CPT/HCPCS: 20553; 99214; J1030; J3490 ==

== ENCOUNTER 2023-08-03 06:00 | Outpatient (RCR) | payer MEDICARE, MEDICAID, SELFPAY | END 2023-09-02 23:59 | disposition home or self-care (01) | LOC: SPT 06:00 | PROVIDERS: PCP Family Medicine Adult Medicine; Visit Provider Neurological Surgery | DX: M48.061 Spinal stenosis, lumbar region without neurogenic claudication (principal) | CPT/HCPCS: 97110 ==

== ENCOUNTER → 2023-08-04 18:44 | Outpatient (BNVA) | payer MEDICARE, MEDICAID, SELFPAY | PROVIDERS: PCP Family Medicine Adult Medicine; Visit Provider Family Medicine | DX: R50.9 Fever, unspecified (principal); Z11.52 Encounter for screening for COVID-19 | CPT/HCPCS: 87426 ==

== ENCOUNTER 2023-10-03 06:00 | Outpatient (RCR) | payer MEDICARE, MEDICAID, SELFPAY | END 2023-10-21 23:59 | disposition home or self-care (01) | LOC: SPT 06:00 | PROVIDERS: PCP Family Medicine Adult Medicine; Visit Provider Neurological Surgery | DX: Z98.1 Arthrodesis status (principal) | CPT/HCPCS: 97110 ==

== ENCOUNTER → 2023-10-22 10:30 | Outpatient (BNVA) | payer MEDICARE, MEDICAID, SELFPAY | PROVIDERS: PCP Family Medicine Adult Medicine; Visit Provider Anesthesiology Pain Medicine | DX: G89.29 Other chronic pain (principal); M79.18 Myalgia, other site; M48.062 Spinal stenosis, lumbar region with neurogenic claudication; M43.26 Fusion of spine, lumbar region | CPT/HCPCS: 20553; 99214; J1030; J3490 ==

== ENCOUNTER → 2023-11-04 17:21 | Outpatient (BNVA) | payer MEDICARE, MEDICAID, SELFPAY | PROVIDERS: PCP Family Medicine Adult Medicine; Visit Provider Nurse Practitioner | DX: J02.9 Acute pharyngitis, unspecified (principal); R05.9 Cough, unspecified | CPT/HCPCS: 87400; 87880 ==

== ENCOUNTER → 2023-12-26 09:46 | Outpatient (BNVA) | payer MEDICARE, MEDICAID, SELFPAY | PROVIDERS: PCP Family Medicine Adult Medicine; Visit Provider Otolaryngology | DX: R06.83 Snoring (principal); J34.2 Deviated nasal septum; J34.3 Hypertrophy of nasal turbinates; M95.0 Acquired deformity of nose; E66.9 Obesity, unspecified | CPT/HCPCS: 99204 ==

== ENCOUNTER → 2024-01-12 16:45 | Outpatient (BNVA) | payer MEDICARE, MEDICAID, SELFPAY | PROVIDERS: PCP Family Medicine Adult Medicine; Visit Provider Family Medicine | DX: J06.9 Acute upper respiratory infection, unspecified (principal) | CPT/HCPCS: 87400 ==

== ENCOUNTER → 2024-01-22 09:18 | Outpatient (BNVA) | payer MEDICARE, MEDICAID, SELFPAY | PROVIDERS: PCP Family Medicine Adult Medicine; Visit Provider Anesthesiology Pain Medicine | DX: M79.18 Myalgia, other site (principal); G89.29 Other chronic pain; M48.062 Spinal stenosis, lumbar region with neurogenic claudication; M54.42 Lumbago with sciatica, left side; M54.41 Lumbago with sciatica, right side; M43.26 Fusion of spine, lumbar region | CPT/HCPCS: 20553; 99214; J1030; J3490 ==

== ENCOUNTER → 2024-04-22 09:14 | Outpatient (BNVA) | payer MEDICARE, SELFPAY | PROVIDERS: PCP Family Medicine Adult Medicine; Visit Provider Anesthesiology Pain Medicine | DX: M79.18 Myalgia, other site (principal); G89.29 Other chronic pain; M48.062 Spinal stenosis, lumbar region with neurogenic claudication; M54.42 Lumbago with sciatica, left side; M54.41 Lumbago with sciatica, right side; M43.26 Fusion of spine, lumbar region | CPT/HCPCS: 20553; 99214; J1010; J3490 ==

== ENCOUNTER → 2024-06-25 10:26 | Outpatient (BNVA) | payer MEDICARE, SELFPAY | PROVIDERS: PCP Family Medicine Adult Medicine; Visit Provider Family Medicine Adult Medicine | DX: R76.11 Nonspecific reaction to tuberculin skin test without active tuberculosis (principal) | CPT/HCPCS: 71046 ==